=== PATIENT | male | born 1990 | race Caucasian/White ===

== ENCOUNTER → 2019-03-27 | Outpatient (CLI) | payer OTHER | LOC: COL.RAD 09:50 | DX: R10.11 Right upper quadrant pain (principal) | CPT/HCPCS: A9537 ==

== ENCOUNTER → 2020-10-07 | Outpatient (CLI) | payer OTHER | LOC: COL.PUL 12:53 | DX: R06.02 Shortness of breath (principal) | CPT/HCPCS: J7674 ==